=== PATIENT | male | born 1965 | race Caucasian/White ===

== ENCOUNTER 2021-04-26 14:28 | Inpatient (IN) | payer OTHER ==
[2021-04-26 15:20] VITALS: BMI 20.6
[2021-04-26] MEDS ORDERED: NALOXONE HCL 0.4 MG/ML VIAL IM PRN (18:07)
[2021-04-26] MEDS ORDERED: clonazePAM 0.5 MG ODT TABLETS SL PRN (18:07)
[2021-04-26] MEDS ORDERED: methaDONE HCL 10 MG TABLET (FOR DETOX USE ONLY) PO ONE (18:07)
[2021-04-26] MEDS ORDERED: MAGNESIUM HYDROX 2400MG/30ML ORAL SUSPENSION 30 ML CUP PO PRN (18:07)
[2021-04-26] MEDS ORDERED: MENTHOL/PHENOL 1 EACH UD MM PRN (18:07)
[2021-04-26] MEDS ORDERED: ACETAMINOPHEN 325 MG TABLET (FP) PO PRN ×2 (18:07)
[2021-04-26] MEDS ORDERED: METHOCARBAMOL 500 MG TABLET PO PRN (18:07)
[2021-04-26] MEDS ORDERED: IBUPROFEN 400 MG TABLET (FP) PO PRN (18:07)
[2021-04-26] MEDS ORDERED: MAGNESIUM CITRATE 300 ML BOTTLE PO PRN (18:07)
[2021-04-26] MEDS ORDERED: BISMUTH SUBSALICYLATE 524 MG/30 ML PO PRN (18:07)
[2021-04-26] MEDS ORDERED: MAG HYDROX/AL HYDROX/SIMETH 30 ML UNIT-DOSE CUP PO PRN (18:07)
[2021-04-26] MEDS ORDERED: cloNIDine HCL 0.1 MG TABLET ONE (18:58)
[2021-04-26] MEDS: cloNIDine HCL 0.1 MG TABLET PO PRN (19:00)
[2021-04-26] MEDS: MELATONIN 5 MG TABLETS PO SCH (22:53)
[2021-04-26] MEDS: THIAMINE HCL 100 MG TABLET (FP) PO SCH (22:53)
[2021-04-27] MEDS ORDERED: methaDONE HCL 10 MG TABLET (FOR DETOX USE ONLY) ONE (09:23)
[2021-04-27] MEDS: PRENATAL VITAMINS W/ FOLIC ACID TABLET (FP) PO SCH (10:35)
[2021-04-27 13:13] LABS: HEMATOCRIT 42.9 % (35.4-49); HEMOGLOBIN 14.6 GM/dL (11.7-16.9); MCH 29.7 pg (25.7-33.7); MCHC 34.1 g/dl (32.0-35.9); MEAN PLT VOLUME 9.2 fl (7.5-11.1); PLATELET COUNT 290 10^3/uL (134-434); RBC 4.93 M/mm3 (4.00-5.60); RDW 13.8 % (11.9-15.9); WHITE BLOOD COUNT 7.2 K/mm3 (4.0-10.0)
[2021-04-27 13:22] LABS: ALBUMIN 3.4 g/dl (3.4-5.0); BLOOD UREA NITROGEN 10.8 mg/dL (7-18); CALCIUM 8.8 mg/dL (8.5-10.1)
[2021-04-27 13:25] LABS: CREATININE 0.9 mg/dL (0.55-1.3)
[2021-04-27 13:27] LABS: BILIRUBIN,TOTAL 0.9 mg/dL (0.2-1); TOT PROT 8.6 g/dl (6.4-8.2)
[2021-04-27] MEDS: MELATONIN 5 MG TABLETS PO SCH (23:13)
[2021-04-27] MEDS: THIAMINE HCL 100 MG TABLET (FP) PO SCH (23:13)
[2021-04-28] MEDS: cloNIDine HCL 0.1 MG TABLET PO PRN (07:08)
[2021-04-28] MEDS ORDERED: methaDONE HCL 10 MG TABLET (FOR DETOX USE ONLY) PO ONE (10:00)
[2021-04-28] MEDS: PRENATAL VITAMINS W/ FOLIC ACID TABLET (FP) PO SCH (10:27)
[2021-04-28] MEDS: NICOTINE 21 MG/24 HOURS TOPICAL PATCH TD SCH (11:50)
[2021-04-28] MEDS: CLOTRIMAZOLE 1% CREAM TP SCH ×2 (11:51→22:23)
[2021-04-28] MEDS: NICOTINE 10 MG CARTRIDGE (INHALER) IH PRN ×2 (13:00→22:21)
[2021-04-28] MEDS: THIAMINE HCL 100 MG TABLET (FP) PO SCH (22:20)
[2021-04-28] MEDS: MELATONIN 5 MG TABLETS PO SCH (22:20)
[2021-04-29] MEDS: NICOTINE 10 MG CARTRIDGE (INHALER) IH PRN ×4 (05:49→19:01)
[2021-04-29] MEDS ORDERED: methaDONE HCL 10 MG TABLET (FOR DETOX USE ONLY) ONE (08:32)
[2021-04-29] MEDS: PRENATAL VITAMINS W/ FOLIC ACID TABLET (FP) PO SCH (10:06)
[2021-04-29] MEDS: NICOTINE 21 MG/24 HOURS TOPICAL PATCH TD SCH (10:06)
[2021-04-29] MEDS: SILVER SULFADIAZINE 1% TOP CREAM 50 GM JAR TP SCH ×2 (10:12→22:21)
[2021-04-29] MEDS: CLOTRIMAZOLE 1% CREAM TP SCH ×2 (12:10→22:20)
[2021-04-29] MEDS: NICOTINE POLACRILEX 4 MG GUM BUC PRN ×2 (17:35→21:01)
[2021-04-29] MEDS: traZODone HCL 100 MG TABLET (FP) PO SCH (22:20)
[2021-04-29] MEDS: THIAMINE HCL 100 MG TABLET (FP) PO SCH (22:20)
[2021-04-30] MEDS: NICOTINE 10 MG CARTRIDGE (INHALER) IH PRN ×4 (08:34→20:07)
[2021-04-30] MEDS ORDERED: methaDONE HCL 10 MG TABLET (FOR DETOX USE ONLY) PO ONE (10:00)
[2021-04-30] MEDS: NICOTINE 21 MG/24 HOURS TOPICAL PATCH TD SCH (10:05)
[2021-04-30] MEDS: PRENATAL VITAMINS W/ FOLIC ACID TABLET (FP) PO SCH (10:05)
[2021-04-30] MEDS: CLOTRIMAZOLE 1% CREAM TP SCH ×2 (10:05→22:15)
[2021-04-30] MEDS: SILVER SULFADIAZINE 1% TOP CREAM 50 GM JAR TP SCH ×2 (10:05→22:16)
[2021-04-30] MEDS: NICOTINE POLACRILEX 4 MG GUM BUC PRN ×6 (10:08→22:18)
[2021-04-30] MEDS: traZODone HCL 100 MG TABLET (FP) PO SCH (22:17)
[2021-04-30] MEDS: THIAMINE HCL 100 MG TABLET (FP) PO SCH (22:17)
[2021-05-01] MEDS: NICOTINE 10 MG CARTRIDGE (INHALER) IH PRN ×2 (06:37→09:46)
[2021-05-01 09:13] VITALS: BP 127/85; PULSE 113; TEMP 96.4
[2021-05-01] MEDS: NICOTINE POLACRILEX 4 MG GUM BUC PRN (09:45)
[2021-05-01] MEDS: NICOTINE 21 MG/24 HOURS TOPICAL PATCH TD SCH (09:45)
[2021-05-01] MEDS: PRENATAL VITAMINS W/ FOLIC ACID TABLET (FP) PO SCH (09:45)
[2021-05-01] MEDS: CLOTRIMAZOLE 1% CREAM TP SCH (09:46)
[2021-05-01] MEDS: SILVER SULFADIAZINE 1% TOP CREAM 50 GM JAR TP SCH (09:46)
== END 2021-05-01 10:24 | disposition home or self-care (01) | DRG 773 ==
LOC: YASAS 14:28 → Y3N 18:36
PROVIDERS: ADMIT Allergy & Immunology; ATTEND Allergy & Immunology
PROC: HZ2ZZZZ Detoxification Services for Substance Abuse Treatment (ICD-10-PCS; principal; 2021-04-26)
DX: F11.23 Opioid dependence with withdrawal (principal); F12.20 Cannabis dependence, uncomplicated; F17.210 Nicotine dependence, cigarettes, uncomplicated; F19.282 Other psychoactive substance dependence with psychoactive substance-induced sleep disorder; F19.24 Other psychoactive substance dependence with psychoactive substance-induced mood disorder; F32.9 Major depressive disorder, single episode, unspecified; B35.3 Tinea pedis; Z62.810 Personal history of physical and sexual abuse in childhood; R73.9 Hyperglycemia, unspecified; S90.812A Abrasion, left foot, initial encounter; S90.811A Abrasion, right foot, initial encounter; X58.XXXA Exposure to other specified factors, initial encounter; Y93.9 Activity, unspecified; Y92.9 Unspecified place or not applicable; Z56.0 Unemployment, unspecified; Z59.0 Homelessness
CPT/HCPCS: 36415; 80053; 82962; 85027; 86780; 93005; 93010; C9803; J0735; U0003; U0005